=== PATIENT | male | born 1970 | race African-American/Black ===

== ENCOUNTER 2020-11-23 03:44 | Emergency (ER) | payer OTHER ==
[~2020-11-23] VITALS: Ht 188 cm; Wt 105.0 kg
[2020-11-23] MEDS ORDERED: LORA10CA PO (04:11)
[2020-11-23] MEDS ORDERED: ACET500T68 PO (04:12)
[2020-11-23] MEDS ORDERED: MULT-735 PO (04:12)
[2020-11-23] MEDS ORDERED: guaiFENesin/CODEINE 100mg/10mg 5 ML LIQUID PO PRN (04:15)
[2020-11-23] MEDS ORDERED: ACETAMINOPHEN 500 MG TABLET PO ONE (04:15)
--- NOTE | 2020-11-23 04:15 | PHYS DOC ---
Adult General Chief Complaint Chief Complaint: CHEST PAIN HPI HPI Patient is 49-year-old male, otherwise healthy who presents Covid positive to the emergency department with a chief complaint of productive cough, chest tightness and fevers at home for the last several days. States that his whole family has Covid has been quarantining at home. Denies headache, actual chest pain, shortness of breath, abdominal pain, nausea, vomiting, diarrhea. States he has taken some Tylenol at home but it has been earlier yesterday. Review of Systems Review of Systems Review of systems otherwise unremarkable except noted in HPI Allergies Allergies Allergies Coded Allergies Type Severity Reaction Last Updated Verified cat dander Allergy Intermediate 11/23/20 Yes Physical Exam Physical Exam Constitutional: Well developed, well nourished, no acute distress, non-toxic appearance. [] HENT: Normocephalic, atraumatic, Eyes: conjunctiva normal, no discharge. [] Neck: Normal range of motion, no tenderness, supple, no stridor. [] Cardiovascular:Heart rate regular rhythm, no murmur [] Lungs & Thorax: Bilateral breath sounds clear to auscultation [] Abdomen: soft, no tenderness, no masses, no pulsatile masses. [] Skin: Warm, dry, no erythema, no rash. [] Extremities: No tenderness, ROM intact, no edema. [] Neurologic: Alert and oriented X 3, no focal deficits noted. [] Psychologic: Affect normal, judgement normal, mood normal. [] EKG EKG EKG with a rate of 87, QRS of 92, QTc of 431, no STEMI. [] Radiology/Procedures Radiology/Procedures [] Heart Score C/O Chest Pain: No Risk Factors: Risk Factors: DM, Current or recent (<one month) smoker, HTN, HLP, family history of CAD, obesity. Risk Scores: Risk Factors: DM, Current or recent (<one month) smoker, HTN, HLP, family history of CAD, obesity. Course & Med Decision Making Course & Med Decision Making Patient is a 49-year-old male, Covid positive who comes into the emergency department with productive cough and chest tightness Vital signs not concerning although temperature of 100.1. Physical exam noted above. Patient started on Tylenol, ibuprofen cough syrup. Chest x-ray with bilateral pneumonia. Started on Levaquin although probably Covid pneumonia but cannot rule out a bacterial pneumonia as well. Discussed all findings with patient and symptom control at home. Advised on quarantine practices. Advised to call primary care physician first thing Wednesday morning to update on ED visit and diagnosis and set up a follow-up for reevaluation. Gave strict return precautions to the ED. Patient grateful, verbalized understanding and agreed with plan of discharge. [] Dragon Disclaimer Dragon Disclaimer This electronic medical record was generated, in whole or in part, using a voice recognition dictation system. Departure Departure: Impression: Primary Impression: Lab test positive for detection of COVID-19 virus Additional Impressions: Cough Fever Pneumonia Disposition: HOME / SELF CARE / HOMELESS Condition: IMPROVED Referrals: STORMY MALCOLM MD Patient Instructions: Viral Syndrome Additional Instructions: You have been diagnosed with COVID-19. It is an infection caused by a new type of coronavirus. COVID-19 will cause cold-like or mild flu symptoms in most. It can cause more severe symptoms like problems breathing in some. There is no treatment for COVID-19. The body will clear the infection over time. Self-care will help to ease discomfort. Steps to Take: Self-Care Rest as needed. Healthy habits may help you feel better. Steps include: Choose healthy foods including fruits and vegetables. Drink water throughout the day. Get plenty of sleep each night. If you smoke, try to quit. It may ease breathing. Avoid alcohol. Keep Others Healthy The virus can spread to others. Droplets are released every time you sneeze or cough. The droplets can get into the mouth, nose, or eyes of people near you and lead to infection. To lower the chances of spreading COVID-19 to others: Stay at home until your doctor has said it is safe to leave. If you tested positive this will mean staying isolated until both of the following are true: At least 7 days have passed since the start of illness. You are free of fever for at least 72 hours without the use of medicine. During this time: - Avoid public areas, events, or transportation. Do not return to work or school until your doctor has said it is safe to do so. - Call ahead if you need to go to a medical center. Let them know you may have COVID-19. It will help them guide you where to go. They may also ask you to wear a facemask when you come to the office. - If you call for emergency medical services, let them know you may have COVID- 19. While at home: - Try to avoid close contact with others. Stay about 6 feet away. - If possible, spend most of your time in a separate room from others. - Use a face mask if you will be in close contact with others such as sharing a room or vehicle. - Have someone wipe down common surfaces in the home. Use household director call center sales every day on areas like doorknobs, counters, or sinks. - Cough or sneeze into a tissue. Throw the tissue away right after use. If a tissue is not available, cough or sneeze into your elbow. - Wash your hands often. Wash them after sneezing or coughing. Use soap and water and wash for at least 20 seconds. Alcohol based hand supervisor housecleaner can be used if soap and w ater is not available. - Do not prepare food for others. Avoid sharing personal items like forks, spoons, or toothbrushes. - Avoid close contact with pets while you are sick. There is no evidence of the virus passing to pets. This is a safety step until more is known about this virus. Isolation can be frustrating. Social interaction can help. Keep in touch with friends and family through phone and tech options. You can still interact with others in your home, just keep a safe distance of about 6 feet. Follow-up: Your doctors office will check in with you to see if there are any changes in your health. You may be asked to keep track of symptoms to share with them. They will also let you know when you are clear to be in public again. Problems to Look Out For: Contact your doctor if your recovery is not going as you expect. Get emergency care if you have problems such as: - Trouble breathing - Nonstop chest pain or pressure - Changes in awareness, confusion, or problems waking - Lips or face have bluish color - Worsening of symptoms If you think you have an emergency, call for emergency medical services right away. [facility] Levofloxacin (LEVOFLOXACIN) 500 Mg Tablet 1 TAB PO DAILY for pneumonia for 6 Days, #6 TAB Prov: SANDER HERNANDES MD 11/23/20 Guaifenesin/Codeine Phosphate (Codeine-Guaifen 10-100 mg/5 ml) 120 Ml Liquid 10 ML PO TID PRN for cough and congestion MDD 20 Milliliter(s) for 3 Days, #90 ML 0 Refills Prov: SANDER HERNANDES MD 11/23/20 Problem Qualifiers SANDER HERNANDES MD Nov 23, 2020 04:15
[2020-11-23] MEDS ORDERED: IBUPROFEN 800 MG TABLET. PO ONE (04:30)
--- NOTE | 2020-11-23 04:42 | RAD ---
XR CHEST 1V INDICATION: Reason: covid +, cough, fever / Spl. Instructions: / History: . COMPARISON STUDY: None. FINDINGS: Lungs: Normal lung volume. Patchy bilateral heterogeneous opacities. Pleura: No pleural effusion or pneumothorax. Heart and Mediastinum: The cardiomediastinal silhouette is normal. The great vessels of the thorax ar e normal. IMPRESSION: Patchy bilateral opacities, concerning for multifocal infection. Electronically signed by: Artie Flor MD (11/23/2020 4:40 AM) [facility]
[2020-11-23] MEDS ORDERED: GUAI120L35 PO ×2 (04:44→04:46)
[2020-11-23] MEDS ORDERED: LEVO500T8 PO (04:48)
[2020-11-23 05:00] VITALS: BP 132/68
[2020-11-23] MEDS ORDERED: levoFLOXacin 500 MG TABLET PO ONE (05:00)
--- NOTE | 2020-11-25 14:13 | EKG ---
[address] [address] Test Date: 2020-11-23 Test Time: 04:01:38 Pat Name: MELE LINDSAY Department: Room: Gender: M [employer]: : 1970 Requested By: SANDER HERNANDES Order Number: [id number] Reading MD: Measurements Intervals [place] Rate: 87 P: 53 MA: 136 QRS: 11 QRSD: 92 T: 12 QT: 358 QTc: 431 Interpretive Statements SINUS RHYTHM INCOMPLETE RIGHT BUNDLE BRANCH BLOCK OTHERWISE NORMAL ECG RI6.02 No previous ECG available for comparison
== END 2020-11-23 05:00 | disposition home or self-care (01) ==
LOC: ER 03:44
DX: U07.1 COVID-19 (principal); J18.9 Pneumonia, unspecified organism
CPT/HCPCS: 71045; 93005; 99284-25